=== PATIENT | female | born 1975 | race Caucasian/White ===

== ENCOUNTER 2016-08-14 22:16 | Emergency (ER) | payer OTHER ==
[~2016-08-14] VITALS: Ht 154.9 cm; Wt 79.8 kg
[2016-08-14 22:25] VITALS: BP 177/103
== END 2016-08-14 22:54 | disposition admitted as inpatient to this hospital (09) ==
LOC: ERH 22:16
DX: Z53.21 Procedure and treatment not carried out due to patient leaving prior to being seen by health care provider (principal)
CPT/HCPCS: 81025